=== PATIENT | male | born 1950 | race Caucasian/White ===

== ENCOUNTER 2018-06-16 10:35 | Emergency (ER) | payer MEDICARE ==
[2018-06-16] MEDS ORDERED: Ketorolac Tromethamine 30 MG/ML VIAL ONE (10:47)
--- NOTE | 2018-06-16 11:29 | CT ---
CT OF THE ABDOMEN AND PELVIS WITHOUT CONTRAST: Date: 06/16/18 COMPARISON: None. HISTORY: Right flank pain. TECHNIQUE: Multiple contiguous axial images were obtained in a CT of the abdomen and pelvis without contrast. Co radha reformats were performed. FINDINGS: There is a 3-4 mm calcification in the proximal aspect of the right ureter with minimal right-sided h ydronephrosis. No calcifications are seen in the left kidney. There is no left hydronephrosis. There is a 2.1 cm hypodensity in the left kidney which likely represents a cyst. There are hypodensities in the liver measuring up to 8.0 cm in size which likely represent cysts. Ashlyn gical clips are seen adjacent to the liver. The gallbladder is not seen as it has been removed. The adrenal glands, spleen, and pancreas are unremarkable, although evaluation is limited on this non contrast examination. Scattered diverticula are seen in the colon. The small bowel is unremarkable. No abdominal or pelvic lymphadenopathy are seen. Degenerative changes are seen in the spine. The visualized inferior thorax and abdominal wall soft ti ssues are unremarkable. IMPRESSION: 1. Proximal right ureteral calcification with minimal right hydronephrosis. 2. Left renal cyst. 3. Hepatic cysts. 4. Diverticulosis. POS: [facility]
[2018-06-16 11:44] LABS: Bilirubin Negative (Negative); Blood, Urine Large (Negative); Clarity CLOUDY (Clear); Glucose, Urine (Dipstick) Negative (Negative); Leukocyte Trace (Negative); Nitrite Negative (Negative); Protein, Urine (Dipstick) 30 mg/dL (Neg-Trace); pH, Urine 5.5 (5.0-9.0)
[2018-06-16 11:45] LABS: #Monocytes 0.6 thou/uL (0.11-0.59); #Neutrophils 9.2 thou/uL (1.40-6.50); %Basophils 0.1 % (0.0-1.0); %Eosinophils 0.3 % (0.0-10.0); %Lymphocytes 9.1 % (21.0-51.0); %Monocytes 5.3 % (0.0-10.0); %Neutrophils 85.1 % (42.0-75.0); Hemoglobin 15.3 g/dL (14.0-18.0); Mean Corpuscular HGB CONC 32.9 g/dL (32.0-36.0); Mean Corpuscular Hemoglobin 28.4 pg (27.0-31.0); Mean Corpuscular Volume 86.3 fL (78.0-98.0); Mean Platelet Volume 8.4 fL (7.4-10.4); Platelet Count 171 thou/uL (130-400); RBC Distribution Width 12.2 % (11.5-14.5); Red Blood Cell (RBC) Count 5.38 mill/uL (4.70-6.10); White Blood Cell (WBC) Count 10.8 thou/uL (4.8-10.8)
[2018-06-16 11:46] LABS: Bacteria/HPF None Seen HPF (None Seen); Hyaline Casts/LPF 0-3 HYALINE CAST LPF (0-3 Hyaline); RBC/HPF GREATER THAN 50-TNTC HPF (0-3); Squamous Epithelial None Seen HPF (0-3); WBC/HPF 0-3 HPF (0-3)
[2018-06-16 12:49] LABS: Albumin 4.2 g/dL (3.4-4.8)
[2018-06-16 12:51] LABS: Calcium 9.2 mg/dL (7.8-10.44); Chloride 110 mmol/L (98-107); Potassium 4.2 mmol/L (3.5-5.1); Sodium 142 mmol/L (136-145)
[2018-06-16 12:52] LABS: Globulin 2.7 g/dL (2.4-3.5); Glucose 102 mg/dL (80-115); Protein, Total 6.9 g/dL (5.8-8.1)
[2018-06-16 12:53] LABS: Anion Gap 11 mmol/L (10-20); Carbon Dioxide 25 mmol/L (23-31)
[2018-06-16 12:54] LABS: Bilirubin, Total 1.2 mg/dL (0.2-1.2)
[2018-06-16 12:55] LABS: Alkaline Phosphatase 75 U/L (40-150); Calc. Creatinine Clearance 0 mL/min (70-130); Estimated GFR-MDRD 38
[2018-06-16 12:56] LABS: BUN (Urea Nitrogen) 34 mg/dL (8.4-25.7)
[2018-06-16 12:57] LABS: AST (SGOT) 19 U/L (5-34)
[2018-06-16 12:58] LABS: ALT (SGPT) 14 U/L (8-55)
== END 2018-06-16 12:50 | disposition home or self-care (01) ==
LOC: ERS 10:35
DX: N13.2 Hydronephrosis with renal and ureteral calculous obstruction (principal); E78.5 Hyperlipidemia, unspecified; Z79.899 Other long term (current) drug therapy
CPT/HCPCS: 36415; 74176; 80053; 81003; 81015; 85025; 96361; 96374; J1885

== ENCOUNTER 2018-06-22 11:20 | Day surgery (SDC) | payer MEDICARE ==
--- NOTE | 2018-06-22 09:28 | RAD ---
KUB: History: Renal calculus. Comparison: CT examination of 06-16-18. FINDINGS: Bowel gas pattern appears nonobstructed. Stool obscures both renal outlines. I cannot definitely visu tahir the proximal right ureteral calculus on this study. IMPRESSION: Right sided proximal ureteral calculus is difficult to definitely visualize on this KUB exam. POS: [facility]
[~2018-06-22 11:20] MED LIST: CEFAZOLIN 1 GM VIAL ONE; Sodium Chloride 0.9% 100 ML ONE
[2018-06-22] MEDS ORDERED: Fentanyl 100 MCG/2 ML VIAL ONE (12:18)
[2018-06-22] MEDS ORDERED: Midazolam HCl 2 mg/2 ml Vial ONE (12:18)
[2018-06-22] MEDS ORDERED: Iothalamate Meglumine 60% 50 ML VIAL FS ONE (12:42)
[2018-06-22 13:10] LABS: Anion Gap 13 mmol/L (10-20); BUN (Urea Nitrogen) 22 mg/dL (8.4-25.7); Calc. Creatinine Clearance 0 mL/min (70-130); Calcium 9.3 mg/dL (7.8-10.44); Carbon Dioxide 28 mmol/L (23-31); Chloride 104 mmol/L (98-107); Estimated GFR-MDRD 39; Glucose 90 mg/dL (80-115); Potassium 4.7 mmol/L (3.5-5.1); Sodium 140 mmol/L (136-145)
[2018-06-22] MEDS ORDERED: Furosemide 20 MG/2 ML VIAL ONE (13:49)
[2018-06-22] MEDS ORDERED: Ketorolac Tromethamine 30 MG/ML VIAL ONE (14:17)
[2018-06-22] MEDS ORDERED: PROPOFOL 200 MG/20 ML VIAL ONE (14:17)
[2018-06-22] MEDS ORDERED: Lidocaine 1% PF 5 ML VIAL ONE (14:17)
[2018-06-22] MEDS ORDERED: Ondansetron HCl/PF 4 MG/2 ML Vial ONE (14:17)
--- NOTE | 2018-06-22 15:29 | RAD ---
RADIOGRAPH ABDOMEN 1 VIEW: DATE: 06/22/18. TIME: 2:12 p.m. HISTORY: A 68-year-old male with right ureteral stone. COMPARISON: 06/22/18 at 7:05 a.m. FINDINGS: There is a new right-sided double-pigtail ureteral stent. The upper curl is incompletely formed. Th e lower curl is fully formed and is at midline in the lower pelvis. There are 2 phleboliths in the l eft hemipelvis. The right-sided ureteral calculus demonstrated on the CT of 06/16/18 is difficult to definitively identify on this KUB. Perhaps the tiny faint calcification partially overlapping the up per portion of the stent at the upper L3 level corresponds to that calculus, but this is uncertain. IMPRESSION: Interval placement of right ureteral stent. POS: [facility]
--- NOTE | 2018-06-22 15:42 | EKG ---
Test Reason : PREOP Blood Pressure : / mmHG Vent. Rate : 067 BPM Atrial Rate : 067 BPM P-R Int : 168 ms QRS Dur : 094 ms QT Int : 438 ms P-R-T Axes : 052 021 036 degrees QTc Int : 462 ms Normal sinus rhythm Prolonged QT Abnormal ECG No previous ECGs available Confirmed by MAHSA SHEPHERD, DR. Frank ([id number]) on 06/22/2018 3:41:41 PM Referred By: NEPTALI Confirmed By:DR. Zac BRAGG MD
--- NOTE | 2018-06-23 10:46 | OP ---
DATE OF PROCEDURE: 06/22/2018 PREOPERATIVE DIAGNOSIS: Right ureteral stone. POSTOPERATIVE DIAGNOSIS: Right ureteral stone. PROCEDURES PERFORMED: Cystoscopy, right retrograde pyelogram, insertion of right ureteral stent 6 x 26. COMPLICATIONS: None; however, the stent was difficult to place due to wedged component of the stone and lack of hydronephrosis. SPECIMENS: None. BLOOD LOSS: None. INDICATIONS: The patient is a 68-year-old male who was seen in the ER several days prior with an adilson vated creatinine and an obstructing stone and a KUB shows that the stone had not moved significantly. So, I set up for an urgent stent and plan for ESWL thereafter after he held his aspirin. PROCEDURE IN DETAIL: The patient was brought to the room by Anesthesia and kept in supine position a fter receiving general anesthetic. His legs were placed in lithotomy position. His perineum was pre pped and draped in the usual sterile fashion. Using a 21-Turkish cystoscope and 30-degree lens, the u rethra was traversed and the bladder inspected. Ureteral orifices were noted in normal position. Th ere were no lesions. Prostate had mild hypertrophy. The right ureteral orifice was intubated with a Pollack catheter. Retrograde pyelogram was performed revealing a proximal defect; however, when adv anced at the midlevel of the ureter, there was difficulty advancing the Pollack, so the wire was used to advance it beyond both the mid and then another point of resistance at the proximal component of the ureter although the CAT scan had only showed 1 stone. Measurements were then taken at this point . There was no significant hydronephrosis noted and so a 6 x 26 double-J was placed. The original p lacement of it had the extended coil up into the upper pole, so I pulled this down to try to get it t o coil in the renal pelvis; however, once it was pulled down into the renal pelvis, it was still some what extended. There was either not enough room in the renal pelvis for it to coil or it was wedged at the UPJ from the stone. After approximately 5 minutes of manipulation to try to push the stent ba ck up slightly to aid in coiling, it was not able to do this given that it was meeting resistance in trying to move back and forth presumably from the stone, if not, an actual ureteral stricture. So, a t this point, knowing that it was adequately draining, the scope was broken apart. Bladder drained a nd then removed in its entirety. The patient tolerated the procedure well and was then awakened and transferred to the PACU in stable condition.
== END 2018-06-22 15:45 | disposition home or self-care (01) ==
LOC: SDC 11:20
PROVIDERS: ATTEND Urology
PROC: 0T768DZ Dilation of Right Ureter with Intraluminal Device, Via Natural or Artificial Opening Endoscopic (ICD-10-PCS; principal; 2018-06-22)
PROC: BT1DYZZ Fluoroscopy of Right Kidney, Ureter and Bladder using Other Contrast (ICD-10-PCS; 2018-06-22)
DX: N20.1 Calculus of ureter (principal); E78.00 Pure hypercholesterolemia, unspecified; Z87.442 Personal history of urinary calculi; Z79.52 Long term (current) use of systemic steroids; Z79.899 Other long term (current) drug therapy
CPT/HCPCS: 52332; 74018; 76000; 80048; 81001; 93005; 96374; C1758; 36415; 93010; J0690; J1885; J1940; J2001; J2250; J2405; J2704; J3010; J7050; Q9961

== ENCOUNTER 2018-06-28 07:08 | Day surgery (SDC) | payer MEDICARE ==
[2018-06-27 13:37] VITALS: BMI 30.7
[2018-06-28] MEDS ORDERED: Levofloxacin 500 mg/D5W 100 ml Premix Bag ONE (08:53)
[2018-06-28] MEDS ORDERED: Fentanyl 100 MCG/2 ML VIAL ONE (09:00)
[2018-06-28] MEDS ORDERED: Iothalamate Meglumine 60% 50 ML VIAL FS ONE (09:28)
--- NOTE | 2018-06-28 09:59 | RAD ---
ABDOMEN 1 VIEW: Date: 06/28/18 HISTORY: Urinary tract calculus. COMPARISON: 06/22/15. FINDINGS/IMPRESSION: Visualized bowel gas pattern is nonspecific. Double pigtail stent overlies the course of the right ur eter. Rounded calcifications over the left lower pelvis have the appearance of phleboliths and are unchange d. No right urinary tract calcification is reliably demonstrated on today's exam. POS: [facility]
[2018-06-28] MEDS ORDERED: Furosemide 20 MG/2 ML VIAL ONE (10:23)
--- NOTE | 2018-06-28 13:20 | OP ---
DATE OF PROCEDURE: 06/28/2018 PREOPERATIVE DIAGNOSIS: Right proximal ureteral stone. POSTOPERATIVE DIAGNOSIS: Right proximal ureteral stone. PROCEDURE: Right extracorporeal shock wave lithotripsy. SURGEON: Suellen Mayo M.D. ANESTHESIA: General endotracheal airway. FINDINGS: Adequate fragmentation of a right UPJ stone with some fragments going back to the renal pe lvis also fragmented. A total of 2500 shocks and maximum power 4/6 and a maximum rate of 70-90 per m inute were then used. ESTIMATED BLOOD LOSS: No blood loss. COMPLICATIONS: None. DRAINS: No drains remaining. INDICATIONS: The patient is a 68-year-old male who was seen in the office and had an urgent stent pl aced on the same day for an obstructing stone and set up for definitive therapy. TECHNIQUE: The patient was brought into the room by Anesthesia, laid on the table in supine position . After receiving general anesthetic the stone identified via fluoroscopy in multiple planes and the n a total of 2500 at a maximum power level of 4-6, maximum rate of 90 per minute were then delivered. Good fragmentation was noted and there was a portion that appeared to fragment and go superiorly in to the renal pelvis. The last 500 shocks were delivered to this area and then minimal to no signific ant stone was noted by this time. At this point, the patient was awakened and transferred to PACU in stable condition.
[2018-06-28] MEDS ORDERED: Ondansetron HCl/PF 4 MG/2 ML Vial ONE (13:31)
[2018-06-28] MEDS ORDERED: PROPOFOL 200 MG/20 ML VIAL ONE (13:31)
[2018-06-28] MEDS ORDERED: PHENYLEPHRINE-NS 100 MCG/ML 10 ML SYRINGE ONE (13:31)
[2018-06-28] MEDS ORDERED: diphenhydrAMINE 50 MG/ML VIAL ONE (13:31)
[2018-06-28] MEDS ORDERED: Metoclopramide HCl 10 MG/2 ML VIAL ONE (13:31)
[2018-06-28] MEDS ORDERED: ePHEDrine/0.9% NaCl/PF SYRINGE 50 mg/10 ml ONE (13:31)
[2018-06-28] MEDS ORDERED: Lidocaine 1% PF 5 ML VIAL ONE (13:31)
[2018-06-28] MEDS ORDERED: Dexamethasone 20 MG/5 ML VIAL ONE (13:31)
== END 2018-06-28 12:08 | disposition home or self-care (01) ==
LOC: SDC 07:08
PROVIDERS: ATTEND Urology
PROC: 0TF6XZZ Fragmentation in Right Ureter, External Approach (ICD-10-PCS; principal; 2018-06-28)
DX: N20.1 Calculus of ureter (principal); N40.1 Benign prostatic hyperplasia with lower urinary tract symptoms; E78.00 Pure hypercholesterolemia, unspecified; R35.1 Nocturia; R39.12 Poor urinary stream; R39.11 Hesitancy of micturition; Z79.82 Long term (current) use of aspirin; Z79.899 Other long term (current) drug therapy; Z87.442 Personal history of urinary calculi
CPT/HCPCS: 74018; J1100; J1200; J1940; J1956; J2001; J2405; J2704; J2765; J3010; Q9961

== ENCOUNTER 2023-09-02 10:44 | Day surgery (SDC) | payer MEDICARE ==
[2023-08-31 13:08] VITALS: BMI 30.7
[~2023-09-02 10:44] MED LIST changes: -CEFAZOLIN 1 GM VIAL ONE; +Iopamidol 370 76% 100 ML VIAL ONE; -Sodium Chloride 0.9% 100 ML ONE
[2023-09-02 12:02] LABS: Cardiac Risk 3.3 (Less than 4.5)
[2023-09-02] MEDS ORDERED: Nitroglycerin 50 MG/250 ML BOT 250 ML ONE (12:05)
[2023-09-02] MEDS ORDERED: Heparin 10,000 UNITS/ 10 ML VIAL ONE ×2 (12:05→13:34)
[2023-09-02] MEDS ORDERED: Lidocaine 1% (PF) 30 ML VIAL ONE (12:05)
[2023-09-02] MEDS ORDERED: Verapamil 5 MG/2 ML VIAL ONE (12:05)
[2023-09-02] MEDS ORDERED: Midazolam HCl 2 mg/2 ml Vial ONE (12:43)
[2023-09-02] MEDS ORDERED: fentaNYL 50 mcg/mL 1 mL Vial ONE (12:43)
== END 2023-09-02 16:39 | disposition home or self-care (01) ==
LOC: SDC 10:44
PROVIDERS: ATTEND Internal Medicine Cardiovascular Disease
PROC: 4A023N7 Measurement of Cardiac Sampling and Pressure, Left Heart, Percutaneous Approach (ICD-10-PCS; principal; 2023-09-02)
DX: I25.10 Atherosclerotic heart disease of native coronary artery without angina pectoris (principal); E78.00 Pure hypercholesterolemia, unspecified; Z87.442 Personal history of urinary calculi; Z90.89 Acquired absence of other organs; Z90.49 Acquired absence of other specified parts of digestive tract; Z79.899 Other long term (current) drug therapy
CPT/HCPCS: 36140; 80061; 93005; 93458; C1769 ×4; C1894; J3010; 93010; 99152; 99153; J1644; J2001; J2250; Q9967

== ENCOUNTER 2023-09-30 13:56 | Outpatient (CLI) | payer MEDICARE | END 2023-09-30 13:57 | disposition home or self-care (01) | LOC: LABBT 13:56 | PROVIDERS: ATTEND Urology | DX: Z01.810 Encounter for preprocedural cardiovascular examination (principal); N40.1 Benign prostatic hyperplasia with lower urinary tract symptoms | CPT/HCPCS: 80048; 81001; 85027; 85610; 85730; 86850; 86900; 86901; 87086; 93005; 93010 ==

== ENCOUNTER 2023-10-06 06:52 | Observation (INO) | payer MEDICARE ==
[2023-09-30 15:22] LABS: Hematocrit 41.2 % (38.8-50.0); Hemoglobin 13.2 g/dL (13.5-17.5); Mean Corpuscular Hemoglobin 28.7 pg (27.0-33.0); Mean Corpuscular Volume 89.6 fl (81.2-95.1); Mean Platelet Volume 11.2 fl (7.4-10.4); Platelet Count 174 10x3/uL (150-450); RBC Distribution Width 13.2 % (11.5-14.5)
[2023-09-30 15:28] LABS: Bilirubin Neg (Negative); Blood, Urine Negative (Negative); Clarity Clear (Clear); Glucose, Urine (Dipstick) Normal (Negative); Ketone, Urine Negative (Negative); Leukocyte Negative (Negative); Nitrite Negative (Negative); Protein, Urine (Dipstick) 15 mg/dl (Neg-Trace); Specific Gravity, Urine 1.025 (1.005-1.030)
[2023-09-30 15:39] LABS: PTT 26.5 sec (22.0-33.0); Prothrombin Time 10.3 sec (9.5-12.1)
[2023-09-30 15:43] LABS: Anion Gap 12 mmol/L (10-20); BUN (Urea Nitrogen) 24 mg/dL (8.4-25.7); Calc. Creatinine Clearance 0 mL/min (70-130); Calcium 8.7 mg/dL (7.8-10.44); Carbon Dioxide 27 mmol/L (23-31); Chloride 110 mmol/L (98-107); Estimated GFR 82; Glucose 123 mg/dL (83-110); Potassium 4.3 mmol/L (3.5-5.1); Sodium 145 mmol/L (136-145)
[2023-09-30 15:48] LABS: Bacteria/HPF 1+ HPF (None Seen); Mucous/LPF 3+ LPF (<2+); RBC/HPF 0-3 HPF (0-3); Squamous Epithelial 0-3 HPF (0-3); WBC/HPF 0-3 HPF (0-3)
[2023-09-30 15:49] LABS: Calcium Oxalate Crystals Rare HPF (None Seen)
[2023-10-06] MEDS ORDERED: SUGAMMADEX SODIUM 200 MG/2 ML VIAL ONE (10:15)
[2023-10-06] MEDS ORDERED: fentaNYL PF 100 MCG/2 ML SYRINGE ONE (10:15)
[2023-10-06] MEDS ORDERED: LevoFLOXacin 500 mg/D5W 100 ML BAG ONE (10:17)
[2023-10-06] MEDS ORDERED: ePHEDrine Sulfate 50 MG/10 ML VIAL ONE (10:30)
[2023-10-06] MEDS ORDERED: Rocuronium Bromide 10 MG/ML (10ML VIAL) ONE (10:30)
[2023-10-06] MEDS ORDERED: Dexamethasone 20 MG/5 ML VIAL ONE (10:30)
[2023-10-06] MEDS ORDERED: Lidocaine 1% PF 5 ML VIAL ONE (10:30)
[2023-10-06] MEDS ORDERED: PHENYLEPHRINE-NS 100 MCG/ML 10 ML SYRINGE ONE (10:30)
[2023-10-06] MEDS ORDERED: PROPOFOL 200 MG/20 ML VIAL ONE (10:30)
[2023-10-06] MEDS ORDERED: Oxybutynin 5 MG TAB PO PRN (11:55)
[2023-10-06] MEDS ORDERED: hydrALAZINE 20 MG/ML VIAL SLOW IVP PRN (11:55)
[2023-10-06] MEDS ORDERED: Mag-Al 1200 mg/1200 mg/30 ML UDCUP PO PRN (11:55)
[2023-10-06] MEDS ORDERED: Ondansetron PF 4 MG/2 ML Vial IVP PRN (11:55)
[2023-10-06] MEDS ORDERED: Bisacodyl 10 MG SUPP PR PRN (11:55)
[2023-10-06] MEDS ORDERED: Acetaminophen 500 MG TAB PO PRN (11:55)
[2023-10-06] MEDS ORDERED: diphenhydrAMINE 50 MG/ML VIAL IVP PRN (11:55)
[2023-10-06] MEDS ORDERED: Morphine 2 MG/ML VIAL SLOW IVP PRN (11:55)
[2023-10-06] MEDS ORDERED: HYDROcodone/Acetaminophen 5/325 mg Tablet PO PRN ×2 (11:55)
[2023-10-06] MEDS ORDERED: Promethazine HCl 25 MG/ML VIAL IM PRN (11:56)
[2023-10-06] MEDS ORDERED: Ondansetron HCl/PF 4 MG/2 ML Vial IVP PRN (11:56)
[2023-10-06] MEDS ORDERED: hydrALAZINE 20 MG/ML VIAL ONE (12:31)
[2023-10-06 12:43] LABS: #Eosinphils 0.1 thou/uL (0.0-0.7); #Monocytes 0.2 thou/uL (0.11-0.59); #Neutrophils 4.5 thou/uL (1.40-6.50); %Basophils 0.4 % (0.0-1.0); %Eosinophils 0.9 % (0.0-10.0); %Lymphocytes 14.1 % (21.0-51.0); %Monocytes 3.6 % (0.0-10.0); %Neutrophils 80.8 % (42.0-75.0); Hematocrit 40.9 % (42.0-52.0); Mean Corpuscular HGB CONC 31.8 g/dL (32.0-36.0); Mean Corpuscular Hemoglobin 29.1 pg (27.0-31.0); Mean Corpuscular Volume 91.5 fl (78.0-98.0); Mean Platelet Volume 10.6 fL (7.4-10.4); Platelet Count 145 10x3/uL (130-400); RBC Distribution Width 13.2 % (11.5-14.5); Red Blood Cell (RBC) Count 4.47 mill/uL (4.70-6.10); White Blood Cell (WBC) Count 5.5 10x3/uL (4.8-10.8)
[2023-10-06 13:08] LABS: Anion Gap 13 mmol/L (10-20); BUN (Urea Nitrogen) 23 mg/dL (8.4-25.7); Calc. Creatinine Clearance 95 mL/min (70-130); Carbon Dioxide 24 mmol/L (23-31); Chloride 109 mmol/L (98-107); Estimated GFR 87; Glucose 103 mg/dL (83-110); Potassium 4.3 mmol/L (3.5-5.1); Sodium 142 mmol/L (136-145)
[2023-10-06] MEDS: Sodium Chloride 0.9% 1,000 ML IV SCH ×2 (13:47→20:35)
[2023-10-06 13:49] VITALS: BMI 29.5
[2023-10-06] MEDS ORDERED: FLU VACC QS2023(65UP)/MF59C/PF 60 MCG/0.5 ML SYRINGE IM ONE (15:00)
[2023-10-06] MEDS: Famotidine/PF 20 mg/2ml Vial SLOW IVP SCH (20:26)
[2023-10-06] MEDS: Docusate 100 MG CAP PO SCH (20:26)
[2023-10-06] MEDS: Vit A,C & E/Lutein/Minerals Tablet PO SCH (20:26)
[2023-10-06] MEDS ORDERED: Tamsulosin HCl 0.4 MG CAP PO SCH (21:00)
[2023-10-06] MEDS ORDERED: Atorvastatin Calcium 10 MG TAB PO SCH (21:00)
[2023-10-06] MEDS ORDERED: Finasteride 5 MG TAB PO SCH (21:00)
[2023-10-06] MEDS: cycloSPORINE 0.05% Ophthalmic Droperette EA EYE SCH (21:07)
[2023-10-07] MEDS ORDERED: cefTRIAXone\\ROCEPHIN 1 GM in Sodium Chloride 0.9% 100 ML IVPB SCH (05:00)
[2023-10-07 05:35] LABS: #Monocytes 0.6 thou/uL (0.11-0.59); %Basophils 0.2 % (0.0-1.0); %Eosinophils 0.3 % (0.0-10.0); %Lymphocytes 13.9 % (21.0-51.0); %Monocytes 9.2 % (0.0-10.0); %Neutrophils 75.9 % (42.0-75.0); Hematocrit 39.7 % (42.0-52.0); Hemoglobin 12.8 g/dL (14.0-18.0); Mean Corpuscular HGB CONC 32.2 g/dL (32.0-36.0); Mean Corpuscular Hemoglobin 28.8 pg (27.0-31.0); Mean Corpuscular Volume 89.4 fl (78.0-98.0); Mean Platelet Volume 10.8 fL (7.4-10.4); Platelet Count 153 10x3/uL (130-400); RBC Distribution Width 13.2 % (11.5-14.5); Red Blood Cell (RBC) Count 4.44 mill/uL (4.70-6.10); White Blood Cell (WBC) Count 6.6 10x3/uL (4.8-10.8)
[2023-10-07 05:54] LABS: Anion Gap 11 mmol/L (10-20); BUN (Urea Nitrogen) 18 mg/dL (8.4-25.7); Calc. Creatinine Clearance 98 mL/min (70-130); Calcium 8.8 mg/dL (7.8-10.44); Carbon Dioxide 25 mmol/L (23-31); Chloride 108 mmol/L (98-107); Estimated GFR 90; Glucose 117 mg/dL (83-110); Potassium 3.8 mmol/L (3.5-5.1); Sodium 140 mmol/L (136-145)
[2023-10-07] MEDS: Sodium Chloride 0.9% 1,000 ML IV SCH (07:52)
[2023-10-07] MEDS ORDERED: Cholecalciferol 1,000 UNITS (25 MCG) TAB PO SCH (09:00)
[2023-10-07] MEDS: Famotidine/PF 20 mg/2ml Vial SLOW IVP SCH (09:46)
[2023-10-07] MEDS: cycloSPORINE 0.05% Ophthalmic Droperette EA EYE SCH (09:46)
[2023-10-07] MEDS: Vit A,C & E/Lutein/Minerals Tablet PO SCH (09:46)
[2023-10-07] MEDS: Docusate 100 MG CAP PO SCH (09:46)
[2023-10-07 12:32] VITALS: BP 121/64; TEMP 97.8
== END 2023-10-07 12:41 | disposition home or self-care (01) ==
LOC: SDC 06:52 → SJJU 14:21
PROVIDERS: ADMIT Urology; ATTEND Urology
PROC: 0VB07ZZ Excision of Prostate, Via Natural or Artificial Opening (ICD-10-PCS; principal; 2023-10-06)
DX: N40.0 Benign prostatic hyperplasia without lower urinary tract symptoms (principal)
CPT/HCPCS: 52601; 80048 ×2; 85025 ×2; J0360; 36415; 81001; 85027; 85610; 85730; 86850; 86900; 86901; 87086; 88305; J0696; J1100; J1200; J1956; J2704; J3490; J7050; S0028